=== PATIENT | male | born 1975 | race Caucasian/White ===

== ENCOUNTER 2016-09-30 17:51 | Emergency (ER) | payer OTHER, SELFPAY ==
[~2016-09-30 17:51] MED LIST: ATACAND16 MG PO; DAILY MULTIPLE1 EAC1 PO; FOLVITE-DPS1 MG PO; LIBRIUM-DPS25 MG PO; OMEPRAZOLE20 M1 PO; VITAMIN B-1100 M1 PO
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
== END 2016-09-30 18:45 | disposition home or self-care (01) ==
LOC: ER 17:51
DX: S01.81XA Laceration without foreign body of other part of head, initial encounter (principal); F41.9 Anxiety disorder, unspecified; G40.909 Epilepsy, unspecified, not intractable, without status epilepticus; Z79.899 Other long term (current) drug therapy; W22.8XXA Striking against or struck by other objects, initial encounter; Y92.009 Unspecified place in unspecified non-institutional (private) residence as the place of occurrence of the external cause